=== PATIENT | female | born 1950 | race Caucasian/White ===

== ENCOUNTER 2019-09-06 12:13 | Observation (INO) | payer MEDICARE, OTHER ==
[~2019-09-06] VITALS: Ht 147.3 cm; Wt 93.0 kg
[~2019-09-06 12:13] MED LIST: ADDERALL 20 MG20 MG PO; ASPIRIN EC81 MG PO; ASPIRIN81 M1 PO; ATORVASTATIN CA20 MG PO; ATORVASTATIN CA40 MG PO; BUPROPION HCL150 M1 PO; BUPROPION XL150 MG PO; CEFTIN250 MG PO; CELEBREX100 MG PO; CLONAZEPAM1 MG PO; COLACE100 MG PO; DIFLUCAN100 MG PO; DOCUSATE SODIUM PO; ESCITALOPRAM OX20 MG PO; FERROUS SULFATE PO; LAMOTRIGINE PO; LAMOTRIGINE150 MG PO; LEVOTHYROXINE150 MCG PO; LEVOTHYROXINE175 MCG PO; LYRICA50 MG PO; METOPROLOL SUCC25 MG PO; NORCO 10-325 T1 EACH; PENICILLIN PO; PENICILLIN V P250 MG PO; PROZAC20 MG PO; ROPINIROLE HCL1 MG PO; TIZANIDINE HCL4 M1 PO; TIZANIDINE HCL4 MG PO; TORSEMIDE20 MG PO; VITAMIN D3 1,01 EACH PO
[2019-09-06] MEDS ORDERED: SODIUM CHLORIDE 0.9% 1000ML 1,000 ML IV STA (12:19)
[2019-09-06] MEDS ORDERED: ONDANSETRON HCL INJ 2MG/ML 2ML 2 MG/ML VIAL IV PRN (12:30)
[2019-09-06] MEDS ORDERED: ENOXAPARIN SODIUM INJ 100 MG/ML SYR SC SCH (12:30)
[2019-09-06] MEDS ORDERED: FAMOTIDINE 20 MG/2 ML VIAL IV SCH (12:30)
[2019-09-06] MEDS ORDERED: NITROGLYCERIN 0.4 MG SUBL SL PRN (12:30)
[2019-09-06] MEDS ORDERED: METOPROLOL TARTRATE 25 MG TAB PO SCH (12:30)
[2019-09-06] MEDS ORDERED: METOPROLOL TARTRATE 50 MG TAB PO ONE (13:00)
[2019-09-06] MEDS ORDERED: ENOXAPARIN SODIUM INJ 100 MG/ML SYR SC ONE (13:00)
[2019-09-06] MEDS ORDERED: PANTOPRAZOLE 40 MG 10ML VIAL IV ONE (13:00)
--- NOTE | 2019-09-06 13:01 | NUR ---
pt asst to restroom on arrival after ekg; got walker for pt and asst to restroom; hat on toliet per pt request, explained importance of need for ua per md order and pt stating she may have a uti per pt. pt asst with pants down per her request, cup and lid with label on cup and wipe to pt with detailed instructions. 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 pt asked to pls remember to get sample on next void. pt states understanding. verified aaox4.
[2019-09-06 13:22] LABS: BASOPHILS % 0.6 % (0.0-1.0); EOSINOPHILS # (AUTO) 0.3 (0.0-0.4); EOSINOPHILS % 4.6 % (0.0-6.0); HEMATOCRIT 41.5 % (34.2-44.1); HEMOGLOBIN 13.2 g/dL (12.0-16.0); LYMPHOCYTES # (AUTO) 1.9 (1.0-3.2); LYMPHOCYTES % 26.4 % (18.0-39.1); MEAN CORPUSCULAR HEMOGLOBIN 28.9 pg (28-32); MEAN CORPUSCULAR HGB CONC 31.8 g/dL (31-35); MONOCYTES # (AUTO) 0.6 (0.2-0.8); MONOCYTES % 8.2 % (4.4-11.3); NEUTROPHILS # (AUTO) 4.3 (2.1-6.9); NEUTROPHILS % 59.9 % (38.7-80.0); PLATELET COUNT 183 x10e3/uL (140-360); RED BLOOD COUNT 4.56 x10e6/uL (3.6-5.1); RED CELL DISTRIBUTION WIDTH 14.6 % (11.7-14.4)
[2019-09-06 13:30] VITALS: BP 186/79
[2019-09-06 13:31] LABS: INR 0.91; PROTHROMBIN TIME 12.7 seconds (11.9-14.5)
[2019-09-06 13:32] LABS: PARTIAL THROMBOPLASTIN TIME 22.6 seconds (23.8-35.5)
[2019-09-06] MEDS: MORPHINE SULFATE 2 MG/ML SYR 1ML IV PRN (13:35)
[2019-09-06 13:42] LABS: ALBUMIN 3.3 g/dL (3.5-5.0); ANION GAP 11.3 mmol/L (8-16); CALCIUM 10.8 mg/dL (8.4-10.2); CREATININE, SERUM 0.99 mg/dL (0.57-1.11); POTASSIUM 4.3 mmol/L (3.5-5.1)
--- NOTE | 2019-09-06 13:47 | Diagnostic Imaging Report ---
Chest, 1 view, 09/06/2019. History: Chest pain. Comparison: None available. Findings: The cardiomediastinal silhouette and pulmonary vasculature are within normal limits for a portable exam. There is no focal consolidation or pleural effusion. Surgical hardware is noted in the lower cervical spine. There are no acute osseous or soft tissue abnormalities. Impression: No acute cardiopulmonary abnormality. Signed by: Eddi Cortez on 09/06/2019 1:43 PM
[2019-09-06 13:49] LABS: BILIRUBIN,URINE NEGATIVE (NEGATIVE); CLARITY,URINE SL CLOUDY (CLEAR); COLOR,URINE YELLOW (YELLOW); KETONES,URINE NEGATIVE (NEGATIVE); LEUKOCYTE ESTERASE ,URINE 1+ (NEGATIVE); NITRITE,URINE NEGATIVE (NEGATIVE); PROTEIN,URINE DIPSTICK NEGATIVE (NEGATIVE); URINE UROBILINOGEN 0.2 mg/dL (0.2 - 1)
[2019-09-06 14:02] LABS: CREATINE KINASE MB 0.8 ng/mL (0-5.0); THYROID STIMULATING HORMONE 0.013 uIU/mL (0.350-4.940)
[2019-09-06 14:08] LABS: MAGNESIUM 1.9 MG/DL (1.3-2.1)
[2019-09-06 14:10] VITALS: BP 186/79
--- NOTE | 2019-09-06 14:10 | NUR ---
Received patient from Er to room 299. Patient is in stable condition. Patient oriented to room and policies. Admission history and initial physical assessment completed and document. Call light within reach. Bed in the lowest position.
[2019-09-06 14:14] LABS: BACTERIA,URINE FEW /HPF; RBC,URINE 0-5 /HPF (0-5)
[2019-09-06] MEDS ORDERED: CEFTRIAXONE SOD 1 GM/NS 50 ML 50 ML IV ONE (14:45)
[2019-09-06] MEDS ORDERED: HYDROCODON-ACE1 EA12 PO (14:46)
[2019-09-06] MEDS ORDERED: VITAMIN D31000 UNI1 PO (14:46)
[2019-09-06] MEDS ORDERED: LAMOTRIGINE150 MG PO (14:46)
[2019-09-06 15:10] VITALS: BP 160/80
--- NOTE | 2019-09-06 15:12 | NUR ---
Called to notify Dr. aDley that patient is being admitted under his care. Received orders from MD and followed. Per MD continue home medications.
[2019-09-06] MEDS ORDERED: DEXTROSE 50% SYRINGE 50 ML IV PRN (15:15)
[2019-09-06] MEDS ORDERED: INFLUENZA VIRUS VAC SPLIT INJ 0.5 ML SYR IM SCH (16:00)
[2019-09-06] MEDS: INSULIN LISPRO 100 UNIT/1 ML 3ML VIAL SQ SCH ×2 (16:24→20:45)
[2019-09-06 16:29] VITALS: BP 144/65
[2019-09-06] MEDS: LAMOTRIGINE 100 MG TAB PO SCH (16:32)
[2019-09-06] MEDS ORDERED: LAMOTRIGINE PO SCH (17:00)
[2019-09-06] MEDS: HYDROCODONE/APAP 7.5MG-325MG 1 EA TAB PO SCH ×2 (17:36→23:35)
--- NOTE | 2019-09-06 18:17 | History and Physical ---
PRIMARY CARE PHYSICIAN: Andrew Brown MD. CHIEF COMPLAINT: Chest pain. HISTORY: The patient is a 69-year-old female with coronary artery disease with stent placement in approximately 2000. She also had right carotid endarterectomy and has baseline hypertension, dyslipidemia, hypothyroidism, came in with chest pain. The patient stated chest pain localized, pressure-like. No radiation. No nausea. No vomiting. The patient is placed on observation for further evaluation. Echocardiogram ordered. Consultation with Dr. Linden Barger for echo workup. PAST MEDICAL HISTORY: 1. Coronary artery disease with previous stent. 2. Hypertension. 3. Dyslipidemia. 4. Obesity. 5. Chronic low back pain. 6. Restless legs syndrome. 7. Bipolar disorder, type 2. 8. Kidney stone. SOCIAL HISTORY: The patient does not smoke or use alcohol. No regular drugs. ALLERGIES: SULFA, GLUTEN, AND LACTOSE. HOME MEDICATIONS: List is reviewed. REVIEW OF SYSTEMS: As mentioned above. No abdominal pain. No headaches. No visual changes. No nausea or vomiting. PHYSICAL EXAMINATION: VITAL SIGNS: Temperature is 98, blood pressure 144/65, pulse rate 65, and respirations 18. GENERAL: The patient is not in acute distress, awake. HEENT: Normocephalic, atraumatic. Pupils reactive. Anicteric. NECK: Supple grossly. PULMONARY: Diminished breath sounds. CARDIOVASCULAR: Regular rate and rhythm. ABDOMEN: Soft, nontender, and nondistended. EXTREMITIES: No gross cyanosis or edema. NEUROLOGIC: No gross focal deficit. LABORATORY DATA: WBC 7.2, hemoglobin 13.2, hematocrit 42, and platelets 183. Chemistry; sodium 138, potassium 4.4, chloride 107, bicarb 24, BUN is 21, creatinine 1, and glucose is 98. BNP is 310. TSH 0.013. Liver enzyme unremarkable. IMAGING: Chest x-ray is unremarkable. IMPRESSION: 1. Chest pain in history of coronary artery disease in 2000 with one stent. 2. History of right carotid endarterectomy. PLAN: Consultation with Dr. Linden Barger. Obtain echocardiogram. We will monitor the patient closely. Resume home medication. Stop IV fluids. Stop the Lovenox q.12. Stop IV Pepcid. We will continue with some home medication. Again, cardiac consultation with Dr. Linden Barger. MD SVETA Aldrich/CARL /[id number]
--- NOTE | 2019-09-06 18:37 | Consultation ---
DATE OF CONSULTATION: Cardiology Consult CHIEF COMPLAINT: The patient is a 69-year-old with chest pain. HISTORY OF PRESENT ILLNESS: The patient is a 69-year-old, who came to the emergency room because her heart was beating irregularly. The patient also reported some chest pain that felt similar in nature to her previous angina. The patient had an intracoronary stent placed about 15 years ago. The patient has had no nausea, no vomiting, no abdominal pain. PAST MEDICAL HISTORY: Significant for: 1. Coronary artery disease and previous coronary stent. 2. Hypothyroidism. 3. Hypertension. 4. Hyperlipidemia. MEDICATIONS: At home include Synthroid, lisinopril, metoprolol, simvastatin, and aspirin. SOCIAL HISTORY: The patient has been a smoker in the past. The patient does not drink. FAMILY HISTORY: There is a known family history of hypertension and coronary artery disease. PHYSICAL EXAMINATION: GENERAL: The patient is a well-developed, well-nourished female, in no obvious distress. VITAL SIGNS: Included temperature of 97.8, pulse is 60, blood pressure 144/65. HEAD, EARS, EYES, NOSE, AND THROAT: The patient's cranium was normocephalic and atraumatic. Extraocular muscles were intact. Sclerae were anicteric. Pupils were equal, round, and reactive to light. There is no pallor or cyanosis of the oral mucosa. There is no erythema or edema of the throat. NECK: Supple. No jugular venous distention. No carotid bruits. CHEST: Clear to auscultation and percussion. CARDIAC: Demonstrated normal S1 and S2 with a short 2/6 systolic murmur. ABDOMEN: Demonstrated good bowel sounds. No tenderness and no masses. EXTREMITIES: There is no clubbing, no cyanosis, and no edema. NEUROLOGIC: The patient was alert and oriented x3. Cranial nerves 2 through 12 were intact. Motor strength was +5 in all limbs. The patient's EKG demonstrated normal sinus rhythm with some nonspecific ST and T-wave changes. IMPRESSION: The patient is a 69-year-old with atypical chest pain and palpitations. RECOMMENDATIONS: As follows: 1. The patient will need to be monitored on telemetry. 2. Cardiac enzymes will need to be drawn. 3. An echocardiogram has been ordered. 4. The patient may require cardiac catheterization depending on the results of the cardiac enzymes and echocardiogram. MD BRETT Rosen/CARL /[id number] cc: MD Andrew Aldrich MD
--- NOTE | 2019-09-06 18:50 | NUR ---
Report given to oncoming nurse. Walking rounds done. Patient is resting in bed. No acute distress noted. Call light within reach. Bed in the lowest position.
[2019-09-06 19:30] VITALS: BP 149/74
--- NOTE | 2019-09-06 19:30 | NUR ---
patient received awake, alert, lying quietly in bed. vss. no c/o pain noted. pm assessment complete. patient instructed to call for assistance when needed.
[2019-09-06 20:19] VITALS: BP 149/74
[2019-09-06] MEDS: METOPROLOL SUCCINATE 25 MG TAB XL PO SCH (20:53)
[2019-09-06] MEDS: SIMVASTATIN 20 MG TAB PO SCH (20:53)
[2019-09-06] MEDS: TIZANIDINE HCL 4 MG TAB PO SCH (20:53)
[2019-09-07] VITALS (9 sets, daily range): BP systolic 90–142; BP diastolic 34–76
[2019-09-07] MEDS ORDERED: FAMOTIDINE 20 MG/2 ML VIAL IV SCH
--- NOTE | 2019-09-07 | NUR ---
patient ambulates to bathroom with walker with standby assistance. patient voids without difficulty.
[2019-09-07] MEDS: LEVOTHYROXINE SODIUM 100 MCG TAB PO SCH (05:38)
[2019-09-07] MEDS: LEVOTHYROXINE SODIUM 75 MCG TAB PO SCH (05:38)
[2019-09-07] MEDS: HYDROCODONE/APAP 7.5MG-325MG 1 EA TAB PO SCH ×4 (05:38→23:39)
--- NOTE | 2019-09-07 05:38 | NUR ---
patient oob to bathroom with assistance. patient medicated with scheduled norco 7.5/325mg po for c/o lower back pain 04/06 at this time.
[2019-09-07] MEDS ORDERED: NON-FORMULARY MEDICATION (Levothyroxine Sodium 175 MCG) PO SCH (06:00)
[2019-09-07 06:50] LABS: BASOPHILS % 0.6 % (0.0-1.0); EOSINOPHILS # (AUTO) 0.4 (0.0-0.4); EOSINOPHILS % 5.9 % (0.0-6.0); HEMATOCRIT 36.8 % (34.2-44.1); HEMOGLOBIN 11.3 g/dL (12.0-16.0); LYMPHOCYTES # (AUTO) 2.3 (1.0-3.2); LYMPHOCYTES % 35.3 % (18.0-39.1); MEAN CORPUSCULAR HEMOGLOBIN 28.3 pg (28-32); MEAN CORPUSCULAR HGB CONC 30.7 g/dL (31-35); MONOCYTES # (AUTO) 0.8 (0.2-0.8); MONOCYTES % 12.2 % (4.4-11.3); NEUTROPHILS % 45.8 % (38.7-80.0); PLATELET COUNT 156 x10e3/uL (140-360); RED CELL DISTRIBUTION WIDTH 14.6 % (11.7-14.4)
[2019-09-07 07:07] LABS: CREATINE KINASE MB 1.2 ng/mL (0-5.0)
[2019-09-07 07:27] LABS: ALBUMIN 2.8 g/dL (3.5-5.0); ANION GAP 13.1 mmol/L (8-16); CALCIUM 10.2 mg/dL (8.4-10.2); CHOL/HDL RATIO 5.7 (3.0-3.6); CREATININE, SERUM 1.02 mg/dL (0.57-1.11); MAGNESIUM 1.9 MG/DL (1.3-2.1); PHOSPHORUS 3.1 MG/DL (2.3-4.7); POTASSIUM 4.1 mmol/L (3.5-5.1)
[2019-09-07] MEDS: INSULIN LISPRO 100 UNIT/1 ML 3ML VIAL SQ SCH ×4 (07:30→20:58)
[2019-09-07] MEDS: METOPROLOL SUCCINATE 25 MG TAB XL PO SCH ×2 (08:42→21:00)
[2019-09-07] MEDS: CHOLECALCIFEROL 1,000 UNIT TAB PO SCH (08:42)
[2019-09-07] MEDS: ASPIRIN 81 MG ENTERIC COATED PO SCH (08:42)
[2019-09-07] MEDS: LISINOPRIL 10 MG TAB PO SCH (08:42)
[2019-09-07] MEDS: LAMOTRIGINE 100 MG TAB PO SCH ×2 (08:42→17:18)
[2019-09-07] MEDS: FLUOXETINE HCL 20 MG CAP PO SCH (08:42)
--- NOTE | 2019-09-07 13:57 | NUR ---
Nutrition Screen Note RD Recommendation for Physician (09/07): -Continue current diet per MD. Plan of Care: RD following, monitoring for tolerance and adequacy. Nutrition reason for involvement: Allergies/Pressure ulcer Primary Diagnose(s): chest pain, HTN PMH: 1. Coronary artery disease with previous stent. 2. Hypertension. 3. Dyslipidemia. 4. Obesity. 5. Chronic low back pain. 6. Restless legs syndrome. 7. Bipolar disorder, type 2. 8. Kidney stone. Ht: 58 in Wt: 205 lb BMI: 42.8 kg/m2 IBW: [address] Assessment: 09/07: 57 YOF admitted for chest pain and HTN. Pt was seen sitting on her chair within her room. She reported she had a good appetite and that she intentionally lost about 40 lbs recently , pt stated she is on a diet and trying to lose weight. Pt denied any ONS. Pt denied N/V/C/D/chewing or swallowing issues. Pt verified her allergy to lactose and gluten and stated she can self select, this is recorded within her EMR and HT. Chart reviewed. Pt has been consuming 100% of her meals. Wound care has been consulted, pt may have possible stage II pressure ulcer on buttock. Recommend ONS, pt denied. Encouraged high protein foods. Will provide appropriate wound recommendations if pt is found to have a stage III or higher. Labs and meds reviewed. Will continue to monitor. Current Diet: cardiac Malnutrition Evaluation (09/07) The patient does not meet criteria for a specified degree of malnutrition at this time. Will re-evaluate at follow-up as appropriate. Diet Education Needs Assessment: Diet education not indicated. Signed: Ellen Solis RD, LD
[2019-09-07] MEDS ORDERED: SODIUM CHLORIDE 0.9% 1000ML 1,000 ML ONE (14:07)
[2019-09-07] MEDS ORDERED: MIDAZOLAM HCL 2 MG/2 ML VIAL ONE ×2 (14:16→14:39)
[2019-09-07] MEDS ORDERED: FENTANYL CITRATE/PF 100MCG/2 ML INJ ONE (14:16)
[2019-09-07] MEDS ORDERED: HEPARIN SOD/SOD CHLORIDE 2,000 ML ONE (14:16)
[2019-09-07] MEDS ORDERED: IOPAMIDOL 370 MG/ML 200 ML INFUS..BTL INJ ONE (14:16)
[2019-09-07] MEDS ORDERED: LIDOCAINE HCL 2% LOCAL 20 ML VIAL ONE (14:16)
[2019-09-07] MEDS: MORPHINE SULFATE 2 MG/ML SYR 1ML IV PRN (15:28)
--- NOTE | 2019-09-07 15:36 | NUR ---
Recvd patient from [facility] Att[facility], AAOx3, Left femoral groin area pressure dressing intact, nice and soft, pedal pulse present on both feet
--- NOTE | 2019-09-07 15:54 | NUR ---
WOUND CARE CONSULTATION: THIS IS A 69 YEAR OLD FEMALE PATIENT ADMITTED TO [facility] FOR CHEST PAIN AND HTN. UNABLE TO PERFORM FULL HEAD TO TOE ASSESSMENT DUE TO PATIENT S/P HEART CATHETERIZATION TODAY. PATIENT MUST REMAIN SUPINE FOR 4 MORE HOURS. WOUND CARE TEAM ABLE TO ASSESS BILATERAL GROIN CREASES, AREAS OF DENUDED SKIN WITH YEAST APPEARANCE NOTED. WOUND CARE TEAM WILL ATTEMPT REMAINDER OF HEAD TO TOE SKIN ASSESSMENT ON TUESDAY. LABS: WBC6.48 ALB2.8 URINE CULTURE = PENDING RECOMMENDATION: -CONTINUE ALTERNATING PRESSURE RELIEF MATTRESS. -APPLY BILATERAL HEEL PROTECTORS WITH PILLOW SUSPENSION. -TURN EVERY 2 HOURS AND PRN. -NURSING TO CLEAN BILATERAL GROIN CREASE AREAS OF DENUDED SKIN WITH SOAP AND WATER, PAT DRY, APPLY NYSTATIN POWDER BID AND PRN. THANK YOU FOR THIS WOUND CARE CONSULTATION. Addendum: 09/07/19 at 1601 by Cara aTmez RN Amended: Links added.
--- NOTE | 2019-09-07 16:17 | Operative Report ---
DATE OF PROCEDURE: SURGEON: Linden Barger MD PROCEDURE: Left heart catheterization. INDICATION: Chest pain and coronary artery disease. COMPLICATIONS: None. ANESTHESIA: Versed, fentanyl and lidocaine. TECHNIQUE: The left groin was draped and prepped in the usual fashion. The area was anesthetized with lidocaine. Standard Seldinger technique was used to place a 6-Icelandic sheath into the left femoral artery without difficulty. A JL4 catheter was used to selectively engage the left coronary artery. A 3DRC catheter was used to selectively engage the right coronary artery. A pigtail catheter was used to perform a left ventriculogram. A Mynx device was used for closure. There were no complications. RESULTS: As follows: 1. There is a normal left main trunk. 2. There is a large left anterior descending artery which gave rise to a medium-sized diagonal branch. There was a patent stent in the proximal portion of the left anterior descending artery. 3. There was a medium-sized AV circumflex artery which gave rise to a large bifurcating obtuse marginal branch. There was minimal disease in the circumflex system. 4. There was a large dominant right coronary artery with minimal disease. 5. There was normal left ventricular size and function with an ejection fraction of 60%. CONCLUSION: The patient has some mild nonobstructive coronary artery disease with a patent stent in the left anterior descending artery. Linden Barger MD DSH/MODL /[id number] cc: Chris Daley MD
--- NOTE | 2019-09-07 19:15 | NUR ---
patient received awake, alert, lying quietly in bed. no c/o pain noted. dressing left groin remains c,d,i. pm assessment complete. patient instructed to call for assistance when needed.
[2019-09-07] MEDS: TIZANIDINE HCL 4 MG TAB PO SCH (21:00)
[2019-09-07] MEDS ORDERED: NYSTATIN 15 GM POWDER UD BTL TOP SCH (21:00)
[2019-09-07] MEDS: SIMVASTATIN 20 MG TAB PO SCH (21:00)
--- NOTE | 2019-09-07 23:39 | NUR ---
patient medicated with scheduled norco 7.5/325mg po for c/o lower back pain 04/06 at this time per patients request.
[2019-09-08] VITALS: BP 110/53
--- NOTE | 2019-09-08 02:00 | NUR ---
patient oob to bathroom with walker with assistance. patient voids without difficulty. no c/o pain noted at this time.
[2019-09-08 04:00] VITALS: BP 97/86
[2019-09-08] MEDS: LEVOTHYROXINE SODIUM 100 MCG TAB PO SCH (05:35)
[2019-09-08] MEDS: HYDROCODONE/APAP 7.5MG-325MG 1 EA TAB PO SCH (05:35)
[2019-09-08] MEDS: LEVOTHYROXINE SODIUM 75 MCG TAB PO SCH (05:35)
--- NOTE | 2019-09-08 05:35 | NUR ---
patient medicated with scheduled norco 7.5/325mg po for c/o lower back pain 04/06 at this time. patient assisted with turning and repositioning. patient instructed to call for assistance when needed.
--- NOTE | 2019-09-08 07:00 | NUR ---
RECEIVED PT IN BED DENIES PAIN. HOPING TO GO HOME.
[2019-09-08] MEDS: INSULIN LISPRO 100 UNIT/1 ML 3ML VIAL SQ SCH (07:30)
[2019-09-08 07:53] VITALS: BP 113/51
[2019-09-08] MEDS: CHOLECALCIFEROL 1,000 UNIT TAB PO SCH (09:00)
[2019-09-08] MEDS: LAMOTRIGINE 100 MG TAB PO SCH (09:00)
[2019-09-08] MEDS: ASPIRIN 81 MG ENTERIC COATED PO SCH (09:00)
[2019-09-08] MEDS: METOPROLOL SUCCINATE 25 MG TAB XL PO SCH (09:00)
[2019-09-08] MEDS: LISINOPRIL 10 MG TAB PO SCH (09:00)
[2019-09-08] MEDS: FLUOXETINE HCL 20 MG CAP PO SCH (09:00)
--- NOTE | 2019-09-08 09:30 | NUR ---
DR OCHOA TO SEE PT. TO BE DISCHARGE LATER.
--- NOTE | 2019-09-08 10:34 | NUR ---
IV AND TELEMERY REMOVED. PT GIVEN DISCHARGE INSTRUCTION.PT ACCOMPANY DOWN BY STAFF VIA WC.
--- NOTE | 2019-09-08 11:51 | Discharge Summary ---
The patient on observation. PRIMARY CARE PHYSICIAN: Andrew Brown MD. VENDOR MANAGEMENT ASSOCIATE: Linden Barger MD. FINAL DIAGNOSIS: Chest pain, status post cardiac catheterization. EF is 60%. Stent is patent on the LAD and mild obstructive disease. No PCI on cardiac cath. SUMMARY: A 69-year-old female came in with chest pain. The patient underwent left heart catheterization yesterday, was unremarkable. Stent is patent in the LAD and only mild nonobstructive disease. EF is 60%. The patient was supposed to go home last night after a heart catheterization if cleared with Cardiology and that did not happen. Today, the patient is discharged. She will go home. Follow up with Dr. Andrew Brown, her family physician for management of atypical chest pain. The patient is otherwise stable, discharged home today. MD Nishant AldrichT/MODL /[id number]
== END 2019-09-08 10:35 | disposition home or self-care (01) ==
LOC: ER 12:17 → ERHOLD 12:32 → MED/SURG3 13:45
PROVIDERS: ADMIT Internal Medicine; ATTEND Internal Medicine
DX: I25.119 Atherosclerotic heart disease of native coronary artery with unspecified angina pectoris (principal); Z95.5 Presence of coronary angioplasty implant and graft; I35.1 Nonrheumatic aortic (valve) insufficiency; I10 Essential (primary) hypertension; E78.5 Hyperlipidemia, unspecified; E03.9 Hypothyroidism, unspecified; F31.81 Bipolar II disorder; G25.81 Restless legs syndrome; E66.9 Obesity, unspecified; Z68.41 Body mass index [BMI] 40.0-44.9, adult
CPT/HCPCS: 36415 ×3; 71045; 80053 ×2; 80061; 81001; 82550 ×2; 82553 ×2; 82948 ×3; 83690; 83735 ×2; 83880; 84100; 84443; 84484 ×2; 85025 ×2; 85610; 85730; 87086; 93005; 93306 ×2; 93458; 93880; 99284; C1760; C1769; C9113; G0378 ×3; J0696; J1650; J2001; J2250; J2270 ×2; J3010; J7030 ×2; Q9967; 99152

== ENCOUNTER 2022-03-26 15:35 | Observation (INO) | payer MEDICARE ==
[~2022-03-26] VITALS: Ht 147.3 cm; Wt 93.0 kg
[~2022-03-26 15:35] MED LIST changes: +HYDROCODON-ACE1 EA12 PO; +VITAMIN D31000 UNI1 PO
[2022-03-26 17:28] LABS: ALANINE AMINOTRANSFERASE 15 IU/L (0-55); ALBUMIN 3.5 g/dL (3.5-5.0); ALBUMIN/GLOBULIN RATIO 0.9 (0.8-2.0); ALKALINE PHOSPHATASE 82 IU/L (40-150); ANION GAP 16.1 mmol/L (8-16); BLOOD UREA NITROGEN 35 mg/dL (7-26); BUN/CREATININE RATIO 29 (6-25); CALCIUM 10.2 mg/dL (8.4-10.2); CARBON DIOXIDE 15 mmol/L (22-29); CHLORIDE 113 mmol/L (98-107); CREATINE KINASE 44 IU/L (29-168); CREATININE, SERUM 1.22 mg/dL (0.57-1.11); EST GLOMERULAR FILTRATION RATE 43 ML/MIN (60-); GLUCOSE 86 mg/dL (74-118); POTASSIUM 5.1 mmol/L (3.5-5.1); SODIUM 139 mmol/L (136-145)
[2022-03-26] MEDS ORDERED: ONDANSETRON HCL INJ 2MG/ML 2ML 2 MG/ML VIAL IV STA (17:28)
[2022-03-26] MEDS ORDERED: MECLIZINE HCL 12.5 MG TAB PO ONE (17:30)
[2022-03-26 18:00] LABS: CLARITY,URINE SL CLOUDY (CLEAR); COLOR,URINE YELLOW (YELLOW); KETONES,URINE NEGATIVE (NEGATIVE); LEUKOCYTE ESTERASE ,URINE SMALL (NEGATIVE); NITRITE,URINE NEGATIVE (NEGATIVE); PROTEIN,URINE DIPSTICK NEGATIVE (NEGATIVE); URINE UROBILINOGEN 0.2 mg/dL (0.2 - 1)
[2022-03-26 18:12] LABS: AMORPHOUS SEDIMENT,URINE FEW (FEW); BACTERIA,URINE FEW /HPF; EPITHELIAL CELLS,URINE FEW /LPF
[2022-03-26 18:12] LABS: BASOPHILS % 0.4 % (0.0-1.0); EOSINOPHILS # (AUTO) 1.9 (0.0-0.4); EOSINOPHILS % 20.6 % (0.0-6.0); HEMATOCRIT 30.3 % (34.2-44.1); HEMOGLOBIN 9.9 g/dL (12.0-16.0); LYMPHOCYTES # (AUTO) 2.7 (1.0-3.2); LYMPHOCYTES % 29.3 % (18.0-39.1); MEAN CORPUSCULAR HEMOGLOBIN 35.5 pg (28-32); MEAN CORPUSCULAR HGB CONC 32.7 g/dL (31-35); MEAN CORPUSCULAR VOLUME 108.6 fL (81-99); MONOCYTES # (AUTO) 0.7 (0.2-0.8); NEUTROPHILS % 42.6 % (38.7-80.0); PLATELET COUNT 188 x10e3/uL (140-360); RED BLOOD COUNT 2.79 x10e6/uL (3.6-5.1); RED CELL DISTRIBUTION WIDTH 16.3 % (11.7-14.4)
[2022-03-26 18:23] LABS: BAND NEUTROPHILS % (MANUAL) 2 %; EOSINOPHILS % (MANUAL) 17 % (0-7); LYMPHOCYTES % (MANUAL) 36 % (19-48); MONOCYTES % (MANUAL) 5 % (3.4-9.0); NEUTROPHILS % (MANUAL) 40 % (40-74)
[2022-03-26 18:25] LABS: PLATELET ESTIMATE ADEQUATE; PLATELET MORPHOLOGY COMMENT NORMAL
[2022-03-26 18:26] LABS: RBC MORPHOLOGY COMMENT NORMAL
[2022-03-26] MEDS ORDERED: ASPIRIN 81 MG CHEW TAB PO ONE (18:45)
[2022-03-26] MEDS ORDERED: DEXTROSE 50% SYRINGE 50 ML IV PRN (18:45)
[2022-03-26] MEDS ORDERED: ONDANSETRON HCL INJ 2MG/ML 2ML 2 MG/ML VIAL IV PRN (18:45)
[2022-03-26] MEDS ORDERED: SODIUM CHLORIDE FLUSH 10 ML SYR INJ PRN (18:45)
[2022-03-26] MEDS: HYDROCODONE/APAP 7.5MG-325MG 1 EA TAB PO PRN (19:15)
[2022-03-26] MEDS: INSULIN REGULAR, HUMAN 100 UNIT/1 ML SQ SCH (21:00)
[2022-03-26] MEDS ORDERED: SODIUM BICARBONATE 8.4% 50 ML in DEXTROSE 5% 1,000 ML IV ONE (21:15)
[2022-03-26] MEDS ORDERED: AMLODIPINE BESYLATE 5 MG TAB PO ONE (21:30)
[2022-03-26 21:35] LABS: % IRON SATURATION 31 % (15-50); IRON 140 ug/dL (50-170); TOTAL IRON BINDING CAPACITY 447 ug/dL (261-478); TRANSFERRIN 319 mg/dL (180-382)
[2022-03-26] MEDS ORDERED: DEXTROSE 5% 1,000 ML IV ONE (21:37)
[2022-03-26] MEDS ORDERED: TIZANIDINE HCL 4 MG TAB PO ONE (21:55)
[2022-03-26] MEDS: LAMOTRIGINE 100 MG TAB PO SCH (22:15)
[2022-03-26 22:30] VITALS: BP_SYST 110; BP_SYST 144; BP_DIAS 45; BP_DIAS 60
[2022-03-27] VITALS: BP 110/60
[2022-03-27] MEDS: HYDROCODONE/APAP 7.5MG-325MG 1 EA TAB PO PRN ×2 (01:27→07:26)
[2022-03-27 04:00] VITALS: BP 115/35
[2022-03-27] MEDS ORDERED: LEVOTHYROXINE SODIUM 50 MCG TAB PO SCH (06:00)
[2022-03-27 07:17] LABS: CREATINE KINASE 54 IU/L (29-168)
[2022-03-27] MEDS: INSULIN REGULAR, HUMAN 100 UNIT/1 ML SQ SCH ×2 (07:30→11:30)
[2022-03-27 07:41] LABS: CHOL/HDL RATIO 4.6 (3.0-3.6)
[2022-03-27 08:04] VITALS: BP 114/43
[2022-03-27 09:00] VITALS: BP 114/43
[2022-03-27] MEDS ORDERED: FLUOXETINE HCL 20 MG CAP PO SCH (09:00)
[2022-03-27] MEDS ORDERED: TIZANIDINE HCL 4 MG TAB PO SCH ×2 (09:00→21:00)
[2022-03-27] MEDS ORDERED: AMLODIPINE BESYLATE 5 MG TAB PO SCH (09:00)
[2022-03-27] MEDS: LAMOTRIGINE 100 MG TAB PO SCH (09:47)
[2022-03-27] MEDS ORDERED: METOPROLOL SUCC25 MG PO (10:31)
[2022-03-27] MEDS ORDERED: CYANOCOBALAMIN INJ 1,000 MCG/ML VIAL IM NR (10:45)
[2022-03-27] MEDS ORDERED: IBUPROFEN 400 MG TAB PO NR (10:45)
[2022-03-27] MEDS ORDERED: IRON SUCROSE 100 MG in SODIUM CHLORIDE 0.9% 100 ML 100 ML IV ONE (10:45)
[2022-03-27 11:59] VITALS: BP 107/61
[2022-03-27] MEDS ORDERED: KEFLEX125 MG/5 M PO (12:41)
== END 2022-03-27 13:20 | disposition home or self-care (01) ==
LOC: ER 16:29 → ERHOLD 18:35 → MED/SURG2 22:32
PROVIDERS: ADMIT Internal Medicine; ATTEND Internal Medicine
DX: D53.9 Nutritional anemia, unspecified (principal); N39.0 Urinary tract infection, site not specified; R53.82 Chronic fatigue, unspecified; R42 Dizziness and giddiness; R00.2 Palpitations; I12.9 Hypertensive chronic kidney disease with stage 1 through stage 4 chronic kidney disease, or unspecified chronic kidney disease; N18.30 Chronic kidney disease, stage 3 unspecified; D63.1 Anemia in chronic kidney disease; E03.9 Hypothyroidism, unspecified; Z20.822 Contact with and (suspected) exposure to COVID-19
CPT/HCPCS: 36415 ×2; 71045; 80053; 80061; 81001; 82550 ×2; 82553 ×2; 82948; 83540; 84466; 84484 ×2; 85025; 93306; 93880; 99284; G0378 ×2; J0696; J1756; J7070; J8597; U0002; J2405